=== PATIENT | male | born 1995 | race Caucasian/White ===

== ENCOUNTER 2025-01-01 12:46 | Outpatient (CLI) | payer OTHER, SELFPAY ==
[2025-01-01 13:18] LABS: Basophils Percent Auto 0.6 % (0.2-1.2); Eosinophils Absolute Auto 0.3 K/mm3 (0-0.3); Eosinophils Percent Auto 4.7 % (0-4.4); Hematocrit 38.8 % (42.0-52.0); Hemoglobin 13.1 g/dL (14.0-18.0); Immature Granulocyte Absolute 0.02 K/mm3 (0.00-0.031); Immature Granulocyte Percent A 0.3 % (0-0.5); Lymphocytes Percent Auto 42.2 % (18.3-44.2); Mean Corpuscular HGB Conc 33.8 g/dl (32-36); Mean Corpuscular Volume 91.9 fl (80-100); Mean Platelet Volume 9.5 fl (7.4-10.4); Monocytes Absolute Auto 0.6 K/mm3 (0.1-0.6); Monocytes Percent Auto 9.4 % (2.6-8.5); Neutrophils Absolute Auto 2.8 K/mm3 (1.3-6.7); Neutrophils Percent Auto 42.8 % (45.5-73.1); Platelet Count Result 251 k/mm3 (150-375); Red Blood Count 4.22 M/mm3 (4.6-6.20); Red Cell Distribution Width 11.9 % (11.5-14.5); White Blood Count 6.6 K/mm3 (4.5-10.0)
[2025-01-01 13:43] LABS: Alanine Aminotransferase 26 U/L (6-50); Albumin Level 4.2 g/dL (3.5-5.1); Alkaline Phosphatase 73 U/L (38-126); Anion Gap 11 mmol/L (4-12); Aspartate Amino Transferase 24 U/L (17-59); Bilirubin,Total 0.4 mg/dL (0.2-1.3); Blood Urea Nitrogen 15 mg/dL (9-20); Calcium 9.4 mg/dL (8.4-10.2); Carbon Dioxide 25 mmol/L (22-30); Chloride 105 mmol/L (98-107); Cholesterol 168 mg/dL (0-200); Estimated Glomerular Filt Rate > 60; Glucose 114 mg/dL (65-110); HDL Direct 38 mg/dL; Sodium 141 mmol/L (137-145); Triglycerides 142 mg/dL (<150)
[2025-01-01 13:55] LABS: LDL Cholesterol Direct 100 mg/dL
[2025-01-01 13:56] LABS: Hemoglobin A1C 6.2 % (<5.7)
--- OUTSIDE RECORDS SUMMARY | 2025-01-01 14:13 | XMS_ITS | CONTINUITY OF CARE DOCUMENT ---
Author Name perry amador Address Unknown Organization [facility] Address [address] [address] Phone [phone] Care Team Providers Care Boat Motor Mechanic Name Role Phone Leonel Martinez MD Unavailable [phone] LEONEL MITCHELL MD Unavailable LEONEL MITCHELL MD Unavailable PROBLEMS Condition Status Date Provider Notes Other symptoms involving cardiovascular system completed - Leonel Martinez MD Palpitations active Leonel Martinez MD Diabetes mellitus, type 1 active Leonel groves MD Sinus tachycardia active Leonel Martinez MD ENCOUNTERS Date Type Provider Location Encounter Diag nosis - In-person encounter Office Visit Leonel Martinez MD [facility] Other symptoms involving cardiovascular systemSinus tachycardia - In-person encounter Office Visit Leonel Martinez MD [facility] PalpitationsDiabetes mellitus, type 1 VITAL SIGNS Date Observation Value Provider blood pressure, diastolic 96 mm[Hg] Me donna Petres blood pressure, systolic 150 mm[Hg] Karen Peters pulse rate 130 /min Triny Peters oxygen saturation, oximetry 96 % Triny Peters respiratory rate E&M 15 /min Triny Peters Body Mass Index (Ratio) 32.38 kg/m2 Brenda Peters weight E&M 213 [lb_av] Triny Peters blood pressure, diastolic 91 mm[Hg] Cherie Carrero blood pressure, systolic 152 mm[Hg] Stephanie Carrero pulse rate 110 /min Chad el oxygen saturation, oximetry 99 % Chad Carrero respiratory rate E&M 16 /min Nicci Carrero Body Mass Index (Ratio) 31.44 kg/m2 Ginger Carrero weight E&M 206.8 [lb_av] Chad schaefer height E&M 68 [in_i] Chad le ALLERGIES No Known Drug Allergies HISTORY OF MEDICATION USE Medication Status Instructions Dates Provider Indications Com ments LISINOPRIL 2.5 MG ORAL TABLET active ONE TAB. DAILY AT NIGHT Leonel Martinez MD HUMALOG MIX 50/50 SUSPENSION active sliding scale Chad Carrero LANTUS SOLUTION active 60 units once daily Chad Carrero FLEXERIL active as needed for back pain Chad Carrero SOCIAL HISTORY Date Observation Value Provider social history reviewed E&M revi ewed - no changes required Leonel Martinez MD smoking status Never smoker Triny Almeida [place] social history E&M Smoking Histo ry: P atient has never smoked. Leonel Martinez MD social history reviewed E&M revi ewed - no changes required Leonel Martinez MD smoking status Never smoker Chad Diaz FAMILY HISTORY Family Member Condition First Degree Blood Relative No Known Fam maria del carmen History INSURANCE PROVIDERS Payer name Policy type / Coverage type [place] [employer] party ID [employer] Medicaid [id number] TREATMENT PLAN Date Name Performer EP faxed 11/25/15:Unr emarkable Holter and echo. N o beta-chanelle needed. O rders: S NOMED-CT: [id number] Current Medications Documented ([facility]-[id number]) Leonel Martinez MD EP faxed 11/25/15: H is updated medication list for this problem includes: Lisinopril 2.5 Mg Tabs (Lisinopril) ..... One tab. daily at night Humalog Mix 50/50 Susp (Insulin lispro prot & lispro susp) ..... Sliding scale Lantus Soln (Insulin glargine soln) ..... 60 units once daily Leonel Martinez MD EP faxed 11/25/15:Unr emarkable Holter and echo O rders: S NOMED-CT: [id number] Current Medications Documented ([facility]-[id number]) Leonel Martinez MD EP Faxed 09/24/15 12 25s: O rders: S NOMED-CT: [id number] Current Medications Documented (SCT-[id number]) E KG (CPT-73005) S NOMED-CT: [id number] Physical Exam, Performed: Pulse Exam of Foot ([id number]) C omplete Echo (CPT-82534) M obile Cardiac Tele (CPT-62716) 9 9244 MOD C omplex (CPT-88828) Leonel Martinez MD EP Faxed 09/24/15 12 25s: O rders: S NOMED-CT: [id number] Physical Exam, Performed: Pulse Exam of Foot ([id number]) C omplete Echo (CPT-85792) M obile Cardiac Tele (CPT-48658) 9 9244 MOD C omplex (CPT-90884) Leonel Martinez MD Date Name COMPREHENSIVE METABO LIC PANEL W/EGFR THYROID PANEL WITH T SH, 3RD GENERATION CBC (INCLUDES DIFF/P LT) Holter Monitor 24 Hr Complete Echo Mobile Cardiac Tele Complete Echo HISTORY OF PROCEDURES Procedure Date Procedure Name Provider Procedure Notes S jodie Schedule Followup Leonel garcia MD 1 year completed SNOMED-CT: [id number] Current Medications Documented Leonel Martinez MD completed SNOMED-CT: 76018550 Physical Exam, Performed: Pulse Exam of Foot Leonel Martinez MD completed Event Monitor Leonel barcenas MD completed SNOMED-CT: 26339243 Physical Exam, Performed: Pulse Exam of Foot Leonel Martinez MD completed EKG Leonel barcenas MD completed SNOMED-CT: [id number] Current Medications Documented Leonel Martinez MD completed
--- OUTSIDE RECORDS SUMMARY | 2025-01-01 14:13 | XMS_ITS | Referral Summary ---
Author Organization [facility] [address] [place] [id number] Care Team Providers Care Special Class Welder Name Role Phone Jen Vann MD Primary Care Provide r Encounters Date Type Department Care Team Description 10/16/2024 9:30 AM MINE LABORER Office Visit 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 Additional 2 units if BS>150 and then an additional 2 units in increments of 50. Active insulin glargine 100 unit/mL vial for injection Inject 30 Units under the skin nightly Active prednisoLONE acetate (PRED FORTE) 1 % ophthalmic suspension Administer 1 drop into the right eye 4 (four) times a day 4 times daily 10 mL Active Active Problems Problem Noted Date Diagnosed Date Proliferative diabetic retin opathy of left eye with macular edema associated with type 1 diabetes mellitus 06/27/2024 Assessment & Plan (06/27/2024 9:00 AM CDT): Neovascularization of the disc (NVD) , neovascularization elsewhere (NVE) and regressed neovascularization elsewhere (NVE) . Discussed R/B/A of PRP. Proliferative diabetic retin opathy of right eye with macular edema associated with type 1 diabetes mellitus 06/27/2024 Assessment & Plan (07/23/2024 9:24 AM CDT): Post op day #1 status post (s/p)pars plana vitrectomy (PPV), membrane peel (MP) endolaser (EL), Afx, 12 % C3F8 Gas right eye (OD) . Doing well. Tobramycin QID Pred forte (PF) QID Shield at bedtime Follow up 1 week Assessment & Plan (06/27/2024 9:00 AM CDT): Diffuse subhyaloid hemorrhage macula involving limiting BCVA . Discussed R/B/A of pars plana vitrectomy (PPV)/endolaser (EL)/Afx/ and patient understands and wishes to proceed. 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 Patient does not drink Frequency of Binge Drinking Not on file 06/08 Personal Safety Answer Date Recorded Have you ever been in or are you currently in a harmful physical or emotional relationship or is someone making you feel afraid or unsafe? 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 Gender Identity Not on file Sexual Orientation Not on file Last Filed Vital Signs Vital Sign Reading Time Taken Comments Blood Pressure 116/71 07/22/2024 12:30 PM CDT Pulse 93 07/22/2024 12:30 PM CDT Temperature 36 C (96.8 F) 07/22/2024 11:55 AM CDT Respiratory Rate 15 07/22/2024 12:30 PM CDT Oxygen Saturation 96% 07/22/2024 12:30 PM CDT Inhaled Oxygen Concentration - - Weight 77.1 kg (170 lb) 07/05/2024 2:15 PM CDT Height 172.7 cm (5' 8 ) 07/05/2024 2:15 PM CDT Body Mass Index 25.85 07/05/2024 2:15 PM CDT Plan of Treatment Not on file Procedures Procedure Name Priority Date/Time Associated Diagnosis Comments OCT, RETINA - OU - BOTH EYES Routine 10/16/2024 10:11 AM MINE LABORER 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 type 1 diabetes mellitus (HCC) Proliferative diabetic retinopathy of right eye with macular edema associated with type 1 diabetes mellitus (HCC) from Last 3 Months Results * OCT, Retina - OU - Both Eyes (10/16/2024 10:11 AM MINE LABORER) Anatomical Region Laterality Modality Head Optical Coherenc e Tomography Narrative 10/16/2024 10:11 AM MINE LABORER Right eye (OD): diffuse thickening and mildly irregular contour status post (s/p) membrane peel (MP) Left eye (OS) resolved cystoid macular edema (CME) and mild subretinal fluid since prior Jane Sparks MD PhD OPHTH TOMOGRAPHY Fin al Result from Last 3 Months Care Teams Special Class Welder Relationship Specialty Start Date End Date Jen Vann MD PCP - General Internal Medicine 05/01/19
--- OUTSIDE RECORDS SUMMARY | 2025-01-01 14:13 | XMS_ITS | Clinical Summary ---
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 Office Visit [facility] Ophthalmology [facility] [address] [place] [address] Jane Sparks MD PhD 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 type 1 diabetes mellitus (HCC) (Primary Dx); Proliferative diabetic retinopathy of right eye with macular edema associated with type 1 diabetes mellitus (HCC) from Last 3 Months Medical History Medical History Date Comments Diabetes mellitus (HCC) Diabetes mellitus type I (HCC) Family History Medical History Relation Name Comments Macular degeneration Maternal Grandmother Macular degeneration Mother Diabetes type I Paternal Grandmother Fami ly history of type 1 diabetes mellitus - at age 28 years due to diabetes complications (Added by TW Conv) Anesthesia problems Neg Hx Glaucoma Neg Hx Relation Name Status Comments Maternal Grandmother Mother Paternal Grandmother Social History Tobacco Use Types Packs/Day Years [...] on file Legal Sex Male 12:06 PM FEDERAL DISTRICT CLERK Gender Identity Not on file Sexual Orientation Not on file Obstetrics History Last Filed Vital Signs Vital Sign Reading [...] 07/05/2024 2:15 PM CDT Plan of Treatment Health Maintenance Due Date Last Done Comments Albumin Creatinine Ratio, Urine 1994 Depression Screening 1994 Foot Exam 1994 Hemoglobin A1C 1994 Hepatitis C Screening 1994 TSH Level 1994 eGFR 1994 Lipid Panel 2004 Varicella Vaccines (1 of 2 - 13+ 2-dose series) 2007 Regular Well Visit/Exam 18-64 2012 Pneumococcal vaccine <65 (1 of 2 - PCV) 2013 DTaP/Tdap/Td Vaccine (5 - Td or Tdap) 11/06/2022 11/06/2012, 1994, 1994, Additional history exists Influenza Vaccine (#1) 2024 Dilated Eye Exam 09/04/2025 09/04/2024, , 07/23/2024, Additional history exists Hepatitis B Screening Completed 03/17/1995 , 1994, 1994 HPV Vaccines Aged Out No longer eligi ble based on patient's age to complete this topic Procedures Procedure Name Priority Date/Time Associated Diagnosis Comments OCT, RETINA - OU - BOTH EYES Routine 10/16/2024 10:11 AM FEDERAL DISTRICT CLERK 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 type 1 diabetes mellitus (HCC) Proliferative diabetic retinopathy of right eye with macular edema associated with type 1 diabetes mellitus (HCC) from Last 3 Months Results * OCT, Retina - OU - Both Eyes (10/16/2024 10:11 AM FEDERAL DISTRICT CLERK) Anatomical Region Laterality Modality Head Optical Coherenc e Tomography Narrative 10/16/2024 10:11 AM FEDERAL DISTRICT CLERK Right eye (OD): diffuse thickening and mildly irregular contour status post (s/p) membrane peel (MP) Left eye (OS) resolved cystoid macular edema (CME) and mild subretinal fluid since prior us Jane Sparks MD PhD OPHTH TOMOGRAPHY Fin al Result from Last 3 Months Care Teams Turn Operator Relationship Specialty Start Date End Date Jen Vann MD PCP - General Internal Medicine 05/01/19
== END 2025-01-01 12:47 | disposition home or self-care (01) ==
LOC: ANHLAB 12:48
PROVIDERS: PCP Physician Assistant Medical; Visit Provider Physician Assistant Medical
DX: E11.9 Type 2 diabetes mellitus without complications (principal); E78.5 Hyperlipidemia, unspecified; N52.9 Male erectile dysfunction, unspecified
CPT/HCPCS: 36415; 80053; 80061; 83036; 84402; 84403; 84443; 85025